=== PATIENT | female | born 2000 | race African-American/Black ===

== ENCOUNTER 2023-11-26 06:22 | Emergency (ER) | payer MEDICAID, OTHER ==
[~2023-11-26] VITALS: Ht 160 cm; Wt 52.5 kg
[2023-11-26 07:20] LABS: Urine Bacteria FEW /hpf (None Seen); Urine Blood 3+ /uL (Negative); Urine Clarity Clear (Clear); Urine Color Colorless (Yellow); Urine Protein, UAD Negative (Negative); Urine Specific Gravity 1.002 (1.001-1.035); Urine Urobilinogen Normal (Negative); Urine WBC 4 /hpf (0 - 5); Urine pH 5.5 (5.0-8.0)
[2023-11-26 08:47] VITALS: BP 116/86; PULSE 100; RESP 17; TEMP 97.9; O2SAT 100
== END 2023-11-26 08:49 | disposition home or self-care (01) ==
LOC: ER 06:22
DX: O20.8 Other hemorrhage in early pregnancy (principal); R10.2 Pelvic and perineal pain; Z3A.20 20 weeks gestation of pregnancy
CPT/HCPCS: 36415; 81001; 84702